=== PATIENT | male | born 1940 | race Caucasian/White ===

== ENCOUNTER → 2016-06-21 | Outpatient (CLI) | payer OTHER | LOC: FCPNEURO 21:00 | PROVIDERS: ATTEND Psychiatry & Neurology Sleep Medicine | DX: G47.33 Obstructive sleep apnea (adult) (pediatric) (principal) ==

== ENCOUNTER → 2016-09-27 | Outpatient (CLI) | payer OTHER | LOC: BHFA 10:01 | PROVIDERS: ATTEND Internal Medicine Interventional Cardiology | DX: I25.10 Atherosclerotic heart disease of native coronary artery without angina pectoris (principal); I10 Essential (primary) hypertension; E78.5 Hyperlipidemia, unspecified ==

== ENCOUNTER → 2016-10-04 | Outpatient (CLI) | payer OTHER | LOC: BHFA 08:30 | PROVIDERS: ATTEND Internal Medicine Cardiovascular Disease | DX: I25.10 Atherosclerotic heart disease of native coronary artery without angina pectoris (principal) | CPT/HCPCS: 78452; 93017; A9500; J2785 ==

== ENCOUNTER → 2017-06-19 | Outpatient (CLI) | payer OTHER | LOC: BMCIMAGING 14:16 | PROVIDERS: ATTEND Family Medicine | DX: R05 Cough (principal) ==

== ENCOUNTER 2018-02-03 15:16 | Emergency (ER) | payer OTHER ==
--- NOTE | 2018-02-03 15:36 | EDPHY ---
H & P Time Seen by Provider: 02/03/18 15:25 HPI/ROS: Chief complaint. Visual change HPI. 77-year-old male presents to the emergency department with 5 day history of visual change with his left eye. Initially straight looked curve such as when he was walking down the stairs and then he noticed that a pill bottle round opening appeared to be oblong. Today face is appear elongated. The patient had sense that when he was looking at cars going by that the background looked like a water wave however when he focused on the background his vision seemed to be normal. 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 He has no eye pain. No claudication with chewing. No headache. No peripheral weakness or paresthesias. No chest discomfort or trouble breathing. No abdominal. 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 Funduscopic exam is unremarkable. No restriction of gaze. No visual field defects. No injection to the conjunctiva ENT, Mouth: Mucous membranes are moist. Respiratory: There are no retractions, lungs are clear to auscultation. Cardiovascular: Regular rate and rhythm. Gastrointestinal: Abdomen is soft and nontender, no masses, bowel sounds normal. Neurological: Awake and alert, sensory and motor exams grossly normal. Skin: Warm and dry, no rashes. Musculoskeletal: Neck is supple nontender. Extremities symmetrical, full range of motion. Psychiatric: Patient is oriented X 3, there is no agitation. Constitutional: Initial Vital Signs Temperature (C) 37.0 C 02/03/18 15:20 Heart Rate 63 02/03/18 15:20 Respiratory Rate 16 02/03/18 15:20 Blood Pressure 137/88 H 02/03/18 15:20 O2 Sat (%) 95 02/03/18 15:20 O2 Delivery Mode Room Air Allergies/Adverse Reactions: Penicillins Allergy (Verified 04/15/13 11:31) Home Medications: Medication Instructions Recorded Aspirin 81mg (OTC) 04/15/13 Lisinopril 04/15/13 Metoprolol Succinate 04/15/13 Simvastatin 04/15/13 Medical Decision Making - Diagnostics Imaging Results: MRI brain without contrast reviewed by me and discussed with Dr. Valentin shows atrophy. White matter disease. No evidence for infarct or hemorrhage ED Course/Re-evaluation: Re-evaluation 5:05 p.m.. Patient is stable and talking on the phone. He and I discussed imaging and lab results. I consulted discussed the case with Dr. Chang Maldonado who will see the patient in the office tomorrow. His concern is for possible macular hole or degeneration. He feels that this is not emergent and can wait till the morning. Patient and I discussed this treatment plan including importance of follow-up and further evaluation. He expresses understanding and agreement Differential Diagnosis: I considered CVA, brain tumor. This may represent injury to the retina including macular hole or macular degeneration. I do not believe this represents retinal detachment - Data Points Laboratory Results: Laboratory Results 02/03/18 15:45 02/03/18 15:45 02/03/18 02/03/18 15:45 15:45 WBC 7.58 10^3/uL 10^3/uL (3.80-9.50) RBC 5.55 10^6/uL 10^6/uL (4.40-6.38) Hgb 17.3 g/dL g/dL (13.7-17.5) Hct 48.4 % % (40.0-51.0) MCV 87.2 fL fL (81.5-99.8) MCH 31.2 pg pg (27.9-34.1) MCHC 35.7 g/dL g/dL (32.4-36.7) RDW 12.6 % % (11.5-15.2) Plt Count 313 10^3/uL 10^3/uL (150-400) MPV 10.1 fL fL (8.7-11.7) Neut % (Auto) 59.3 % % (39.3-74.2) Lymph % (Auto) 21.2 % % (15.0-45.0) Craven % (Auto) 10.2 % % (4.5-13.0) Eos % (Auto) 7.8 % H % (0.6-7.6) Baso % (Auto) 1.2 % % (0.3-1.7) Nucleat RBC Rel Count 0.0 % % (0.0-0.2) Absolute Neuts (auto) 4.50 10^3/uL 10^3/uL (1.70-6.50) Absolute Lymphs (auto) 1.61 10^3/uL 10^3/uL (1.00-3.00) Absolute Monos (auto) 0.77 10^3/uL 10^3/uL (0.30-0.80) Absolute Eos (auto) 0.59 10^3/uL H 10^3/uL (0.03-0.40) Absolute Basos (auto) 0.09 10^3/uL 10^3/uL (0.02-0.10) Absolute Nucleated RBC 0.00 10^3/uL 10^3/uL (0-0.01) Immature Gran % 0.3 % % (0.0-1.1) Immature Gran # 0.02 10^3/uL 10^3/uL (0.00-0.10) ESR Pending Sodium 138 mEq/L mEq/L (135-145) Potassium 4.2 mEq/L mEq/L (3.3-5.0) Chloride 104 mEq/L mEq/L (97-110) Carbon Dioxide 26 mEq/l mEq/l (22-31) Anion Gap 8 mEq/L mEq/L (6-14) BUN 17 mg/dL mg/dL (7-23) Creatinine 1.0 mg/dL mg/dL (0.7-1.3) Estimated GFR > 60 Glucose 100 mg/dL mg/dL (70-100) Calcium 9.3 mg/dL mg/dL (8.5-10.4) Departure - Departure Disposition: Home, Routine, Self-Care Clinical Impression: Change in vision Condition: Good Instructions: Blurred Vision (ED) Additional Instructions: Return tonight for worsening symptoms Dr. Maldonado, sales enablement lead, would like to see you in the office tomorrow morning at 8:30 a.m. for further evaluation of your eye and vision Referrals: NONE *PRIMARY CARE P,. [Primary Care Provider] - As per Instructions Chang Maldonado MD [Medical Doctor] - 1 day without fail
[2018-02-03 16:38] LABS: PLATELET COUNT 313 10^3/uL (150-400)
[2018-02-03 17:35] VITALS: BP 161/88
== END 2018-02-03 17:34 | disposition home or self-care (01) ==
DX: H53.8 Other visual disturbances (principal); H47.091 Other disorders of optic nerve, not elsewhere classified, right eye; I10 Essential (primary) hypertension; Z95.9 Presence of cardiac and vascular implant and graft, unspecified

== ENCOUNTER → 2018-07-19 | Outpatient (CLI) | payer OTHER | LOC: BMCIMAGING 13:33 | PROVIDERS: ATTEND Nurse Practitioner Family | DX: J44.1 Chronic obstructive pulmonary disease with (acute) exacerbation (principal); J45.42 Moderate persistent asthma with status asthmaticus ==